=== PATIENT | male | born 1990 ===

== ENCOUNTER 2020-09-24 03:42 | Outpatient (CLI) | payer OTHER, SELFPAY ==
--- NOTE | 2020-09-24 | DI.CT_ITS ---
EXAM: CT CHEST/ABD/PEL W CLINICAL HISTORY: DIAPHRAGMATIC HERNIA,K44.9,KIDNEY DISEASE,COMPARE TO 04/2019 TECHNIQUE: Imaging Protocol: Axial computed tomography images with coronal and sagittal reformatted images were created and reviewed CONTRAST MATERIAL: Intravenous: Visipaque 320 contrast volume:100 mL Oral: Yes COMPARISON: No exams were available for comparisonWhen priors become available, an addendum will be issued. FINDINGS: CHEST: Tracheobronchial tree: Patent where visualized. Pulmonary parenchyma: No consolidation or dominant measurable mass. There is scarring in the left low er lobe. There are calcified granuloma in the lung bases. Visualized thyroid gland: Unremarkable. Mediastinum and Barbara: No dominant adenopathy or fluid collection. Pleura: No effusion or pneumothorax. Heart: The heart is not dilated. No coronary artery calcifications are seen. No pericardial effusion. Aorta: Thoracic aorta non-dilated. Lymph nodes: Within normal limits. Soft tissues: Unremarkable. Bones:Normal. ABDOMEN: Liver: Normal density. No measurable mass. Portal, Superior Mesenteric, and Splenic Veins: Unremarkable. Gallbladder and Biliary Tract: No radiodense calculus or dilation. Pancreas: Normal density, no abnormal calcifications or inflammatory process. Spleen: Normal. Adrenals: No masses seen. Kidneys: There is marked atrophy of the upper half of the left kidney. The atrophic component shows n o enhancement. The left kidney measures 6 cm craniocaudad. No radiodense stones or obstructive uropat hy. No masses seen. Abdominal Aorta: Abdominal portion non-dilated. Bowel: No obstruction or bowel wall thickening. Appendix is unremarkable. Peritoneal Cavity: No ascites, collection or mesenteric inflammatory response. No free air.There is a left-sided diaphragmatic hernia containing an unremarkable portion of the superior spleen. Lymph Nodes: Within normal limits. 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 Soft Tissues: There are 2 small midline supraumbilical anterior abdominal wall hernias. The each cont ain unremarkable loops of small bowel. PELVIS: Bladder: Symmetric distention, no gross wall thickening. Reproductive Organs: Unremarkable as visualized. Lymph Nodes: Within normal limits. Bones: Within normal limits. IMPRESSION: 1. Left-sided diaphragmatic hernia containing an unremarkable portion of the spleen. 2. Two small midline supraumbilical anterior abdominal wall hernias containing unremarkable loops of small bowel. 3. Marked atrophy of the upper half of the left kidney. 4. No acute pulmonary process. RADIATION DOSE DELIVERED: 1,472.28mGy.cm Total DLP DATA REPOSITORY: All CT scans at this facility are submitted to the National Radiology Data Registry (NRDR) Dose Index Registry (DIR) with the [employer] ([employer]). RADIATION OPTIMIZATION: All CT scans at this facility use at least one of these dose optimization te chniques: automated exposure control; mA and/or kV adjustment per patient size (includes targeted exa ms where dose is matched to clinical indication); or iterative reconstruction.
[2020-09-24] MEDS: Omnipaque 350 MG/ML 50 ML BTL IJ (08:44)
[2020-09-24] MEDS: Breeza Beverage 473 ML BTL PO ×2 (08:45→08:46)
[2020-09-24 08:55] LABS: CREATININE 1.1 mg/dL (0.70-1.30)
[2020-09-24] MEDS: Normal Saline - Diluent 50 ML VIAL IV (10:16)
== END 2020-09-24 04:02 ==
PROVIDERS: PCP Nurse Practitioner Adult Health; Visit Provider Surgery
DX: K44.9 Diaphragmatic hernia without obstruction or gangrene (principal); K43.9 Ventral hernia without obstruction or gangrene; N26.1 Atrophy of kidney (terminal)
CPT/HCPCS: 74177; 71260; 82565; Q9967